=== PATIENT | male | born 1945 | race Caucasian/White ===

== ENCOUNTER 2016-11-01 13:41 | Emergency (ER) | payer MEDICARE, OTHER ==
[2016-11-01] MEDS ORDERED: Tetracaine 0.5% 2 ML Bottle EYERT ONE (14:03)
[2016-11-01] MEDS ORDERED: Fluorescein 1 MG Ophth Strip EYERT ONE (14:03)
[2016-11-01 14:04] VITALS: BP 146/87
[2016-11-01] MEDS ORDERED: Tetracaine 0.5% Ophth Soln 15 ML Bottle ONE (14:07)
--- NOTE | 2016-11-01 14:07 | EDM.PDOC ---
ED HPI EYE COMPLAINT - General Chief Complaint: ENT Problem Stated Complaint: SOMETHING IN RIGHT EYE Time Seen by Provider: 11/01/16 14:04 Source: Reports: Patient History Limitations: Reports: No limitations - History of Present Illness INITIAL COMMENTS - FREE TEXT/NARRATIVE: States that he woke this am with "feels like something is in my eye". no other complaints. Symptom Onset Date: 11/01/16 Timing/Duration: Reports: Constant Quality: Reports: Ache Worsens with: Reports: Movement Context: Reports: other (sleeping) Associated Symptoms (Eye): Reports: pain, decreased/blurred SUPERVISOR TUBING (EYE): eyewash/irrigation - Related Data Allergies/ADRs: Allergies cephalexin Allergy (Verified 11/01/16 13:44) Cannot Remember Home Meds: Ambulatory Orders Medication Instructions Recorded Confirmed . [No Known Home Meds] 02/03/16 11/01/16 Past Medical History - Past Health History Medical/Surgical History: Denies Medical/Surgical History HEENT History: Reports: Impaired vision Respiratory History: Reports: Pneumonia, recurrent Genitourinary History: Reports: Renal calculus Musculoskeletal History: Reports: Fracture Other Musculoskeletal History: broke arm when a baby. - Infectious Disease History Infectious Disease History: Reports: Mumps Social & Family History - Family History Family Medical History: Noncontributory - Tobacco Use Smoking Status *Q: Never Smoker - Caffeine Use Caffeine Use: Reports: Coffee - Recreational Drug Use Recreational Drug Use: No ED ROS GENERAL - Review of Systems Review Of Systems: See Below HEENT: Reports: Eye pain ED EXAM GENERAL W FULL EYE - Physical Exam Exam: See Below Exam Limited By: No limitations General Appearance: alert, WD/WN, no apparent distress Eye Exam: bilateral eye: EOMI, PERRL Eyelids: bilateral: normal appearance Conjunctiva & Sclera: right: injected Cornea Exam: bilateral: normal appearance Extraocular Movements: bilateral: intact Pupils: normal accommodation Pupillary Size: bilateral: 4 mm Pupillary Reaction: bilateral: brisk Anterior Chamber: bilateral: normal appearance ED EYE w/ Add Procedure - Eye Procedure Alcaine Drops Administered: Yes Eye Irrigated w/ Saline (ccs): 5 Cyclogel 2 Drops Administered: right eye Progress: Pt tolerated well. abrasion noted to iris about 0.5 cm Course - Vital Signs Last Recorded V/S: Last Vital Signs Temp 96.4 F 11/01/16 13:50 Pulse 76 11/01/16 13:50 Resp 18 11/01/16 13:50 BP 146/87 H 11/01/16 14:04 Pulse Ox 97 11/01/16 13:50 - Orders/Labs/Meds Meds: Medications Discontinued Medications Generic Name Dose Route Start Last Admin Trade Name Marcelino PRN Reason Stop Dose Admin Fluorescein Sodium 1 mg 11/01/16 14:03 11/01/16 14:09 Ful-Luciana EYERT 11/01/16 14:04 1 mg ONETIME ONE Administration Tetracaine 1 ml 11/01/16 14:03 11/01/16 14:08 Pontocaine 0.5% Ophth Drops EYERT 11/01/16 14:04 1 drop ASDIRECTED ONE Administration Tetracaine Confirm 11/01/16 14:07 Tetracaine 0.5% Ophth Soln Administered 11/01/16 14:08 Dose 15 ml .ROUTE .STK-MED ONE Departure - Departure Time of Disposition: 14:29 Disposition: Home, Self-Care 01 Condition: good Clinical Impression: Corneal abrasion Qualifiers: Encounter type: initial encounter Laterality: right Qualified Code(s): S05.01XA - Injury of conjunctiva and corneal abrasion without foreign body, right eye, initial encounter Instructions: Corneal Abrasion Forms: ED Department Discharge Additional Instructions: You may use an eye patch to the eye to keep it closed and decrease the pain. Place the Erythromycin(antibiotic) ointment in four times daily. Take motrin for pain. Follow up with loan operations specialist in 2-3 days if not improving. Return for any worsening symptoms or increased blurred vision.
== END 2016-11-01 14:37 | disposition home or self-care (01) ==
LOC: DL.ED 13:41
DX: S05.01XA Injury of conjunctiva and corneal abrasion without foreign body, right eye, initial encounter (principal); Z88.1 Allergy status to other antibiotic agents; Z87.442 Personal history of urinary calculi; Z87.01 Personal history of pneumonia (recurrent); X58.XXXA Exposure to other specified factors, initial encounter
CPT/HCPCS: 99283